=== PATIENT | male | born 1945 | race Asian ===

== ENCOUNTER 2017-11-12 09:49 | Day surgery (SDC) | payer OTHER ==
[~2017-11-12 09:49] MED LIST: CHOLESTEROL PILL; [UNRECOGNIZED DRUG - REMARK]; [UNRECOGNIZED DRUG - REMARK]; [UNRECOGNIZED DRUG - REMARK]
[2017-11-12] MEDS ORDERED: KETOROLAC 30 MG/ML VIAL ONE (13:17)
[2017-11-12] MEDS ORDERED: LIDOCAINE 2% 100 MG/5 ML UJET TP ONE (13:18)
== END 2017-11-12 14:10 | disposition home or self-care (01) ==
LOC: MOR 09:49 → MMU 10:37 → MOR 14:10
PROVIDERS: ATTEND Internal Medicine Gastroenterology
DX: Z12.11 Encounter for screening for malignant neoplasm of colon (principal); D12.2 Benign neoplasm of ascending colon; K57.30 Diverticulosis of large intestine without perforation or abscess without bleeding; I10 Essential (primary) hypertension; E78.5 Hyperlipidemia, unspecified; E11.9 Type 2 diabetes mellitus without complications; Z98.890 Other specified postprocedural states; Z79.899 Other long term (current) drug therapy
CPT/HCPCS: 45385; 82948; J1885

== ENCOUNTER 2023-11-02 09:33 | Day surgery (SDC) | payer OTHER ==
[~2023-11-02] VITALS: Ht 170.2 cm; Wt 81.6 kg
[2023-11-02] MEDS ORDERED: fentaNYL citrate 0.05 MG/ML VIAL ONE (10:49)
[2023-11-02] MEDS ORDERED: LIDOCAINE 2% 100 MG/5 ML UJET TP ONE ×2 (10:49→13:40)
[2023-11-02] MEDS: fentaNYL citrate 0.05 MG/ML VIAL IVP ONE (11:03)
[2023-11-02] MEDS ORDERED: fentaNYL citrate 0.05 MG/ML VIAL IVP ONE (13:40)
== END 2023-11-02 12:20 | disposition home or self-care (01) ==
LOC: MDS 09:33 → MMU 09:37 → MDS 12:20
PROVIDERS: ATTEND Internal Medicine Gastroenterology
DX: Z12.11 Encounter for screening for malignant neoplasm of colon (principal); K57.30 Diverticulosis of large intestine without perforation or abscess without bleeding; K64.8 Other hemorrhoids; Z86.010 Personal history of colon polyps; I10 Essential (primary) hypertension; E78.00 Pure hypercholesterolemia, unspecified; E11.9 Type 2 diabetes mellitus without complications; F17.200 Nicotine dependence, unspecified, uncomplicated; Z95.5 Presence of coronary angioplasty implant and graft; Z79.84 Long term (current) use of oral hypoglycemic drugs; Z79.899 Other long term (current) drug therapy
CPT/HCPCS: 82948; G0105; J3010